=== PATIENT | female | born 2000 | race African-American/Black ===

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

== ENCOUNTER 2024-04-17 15:58 | Emergency (ER) | payer MEDICAID ==
[~2024-04-17] VITALS: Ht 165.1 cm; Wt 70.0 kg
[2024-04-17 16:07] VITALS: O2SAT 100
[2024-04-17 17:03] LABS: CLARITY URINE CLEAR (CLEAR); COLOR URINE YELLOW (YELLOW); GLUCOSE URINE NEGATIVE (NEGATIVE); KETONES URINE NEGATIVE (NEGATIVE); LEUKOCYTE ESTERASE URINE 3+ (NEGATIVE); NITRITE URINE NEGATIVE (NEGATIVE); OCCULT BLOOD URINE NEGATIVE (NEGATIVE); PH URINE 6.5 (4.5-8.0); PROTEIN URINE NEGATIVE (NEGATIVE); SPECIFIC GRAVITY URINE 1.014 (1.005-1.030)
[2024-04-17] MEDS ORDERED: FLUC150T46 MT (17:11)
[2024-04-17] MEDS ORDERED: CLOT21CR13 VG (17:11)
[2024-04-17 17:15] VITALS: BP 110/65; PULSE 84; RESP 16; TEMP 36.66960; O2SAT 100
[2024-04-17] MEDS ORDERED: CLOT21CR6 VG (17:16)
[2024-04-17 18:35] LABS: SQUAMOUS EPITHELIAL CELL URINE 3+ /lpf (RARE/1+)
[2024-04-17 18:36] LABS: RBC URINE 0-2 /hpf (0-2)
[2024-04-17 18:37] LABS: BACTERIA URINE 2+
== END 2024-04-17 17:31 | disposition home or self-care (01) ==
LOC: ER 15:58
DX: B37.31 Acute candidiasis of vulva and vagina (principal); R30.0 Dysuria
CPT/HCPCS: 81003; 81025; 99283